=== PATIENT | female | born 1980 | race Caucasian/White ===

== ENCOUNTER 2016-07-10 00:54 | Emergency (ER) | payer BC ==
[2016-07-10 01:34] LABS: URINE APPEARANCE CLEAR; URINE BILIRUBIN NEGATIVE (NEGATIVE); URINE COLOR LTYELLOW; URINE GLUCOSE (UA) NEGATIVE (NEGATIVE); URINE KETONE NEGATIVE (NEGATIVE); URINE LEUK ESTERASE NEGATIVE (NEGATIVE); URINE NITRITE NEGATIVE (NEGATIVE); URINE UROBILINOGEN NEGATIVE E.U./dl (0.2-1.0)
--- NOTE | 2016-07-10 01:40 | PDOC ---
History of Present Illness - General History Source: Patient Exam Limitations: No Limitations - History of Present Illness Initial Comments: 07/10/16 01:55 The patient is a 36 year old female with no significant past medical history who presents to the ED with 3 weeks of dry cough. Patient reports visiting a urgent care for her persistent dry cough where she had a flu swab and rapid strep done that was negative. Patient was treated with flonase and tessalon perles without improvement. She presents to the ER today for further evaluation. The patient denies fever, chills, SOB, chest pain, and palpitations. The patient denies abdominal pain, nausea, vomiting, and diarrhea. Allergies: NKDA Social History: No alcohol, tobacco, or drug use reported. Past Surgical History: None reported <Rena Swan - Last Filed: 07/10/16 01:55> - General History Source: Patient <GeorgeKeith murphy - Last Filed: 07/10/16 02:29> - General Chief Complaint: Cold Symptoms Stated Complaint: COLD SYMPTOMS, VOMITING Time Seen by Provider: 07/10/16 01:23 Past History <Rena Swan - Last Filed: 07/10/16 01:55> - Psycho/Social/Smoking Cessation Hx Anxiety: No Suicidal Ideation: No Smoking History: Never smoked Have you smoked in the past 12 months: No Hx Alcohol Use: No Drug/Substance Use Hx: No Substance Use Type: None <Keith Alberts - Last Filed: 07/10/16 02:29> - Past Medical History Allergies/Adverse Reactions: Allergies Allergy/AdvReac Type Severity Reaction Status Date / Time No Known Allergies Allergy Verified 07/10/16 01:19 Home Medications: Ambulatory Orders Albuterol Sulfate Inhaler - [Ventolin HFA Inhaler -] 2 inh PO Q4H #1 inh Benzonatate [Tessalon Pearls -] 100 mg PO TID 07/10/16 Fluticasone Prop 0.05% Nasal [Flonase -] 1 - 2 spray NS BID 07/10/16 Ondansetron [Zofran *Odt*] 4 mg SL TID #30 od.tablet 07/10/16 Pseudoephedrine HCl [Sudafed] 30 mg PO Q6H #20 tablet 07/10/16 Review of Systems - Review of Systems Able to Perform ROS?: Yes Comments:: 07/10/16 01:55 CONSTITUTIONAL: Absent: fever, no chills, no fatigue EYES: Absent: visual changes ENT: Absent: ear pain, no sore throat CARDIOVASCULAR: Absent: chest pain, no palpitations RESPIRATORY: +cough Absent: no SOB GI: Absent: abdominal pain, no nausea, no vomiting, no constipation, no diarrhea GENITOURINARY: Absent: dysuria, no frequency, no hematuria MUSKULOSKELETAL: Absent: back pain, no arthralgia, no myalgia SKIN: Absent: rash NEURO: Absent: headache <BenyRena - Last Filed: 07/10/16 01:55> *Physical Exam - Vital Signs Last Vital Signs Temp Pulse Resp BP Pulse Ox 98.3 F 65 17 106/68 100 07/10/16 01:20 07/10/16 01:20 07/10/16 01:20 07/10/16 01:20 07/10/16 01:20 - Physical Exam Comments: 07/10/16 01:55 GENERAL: Well-appearing, well-nourished. No apparent distress. HEENT: Normocephalic, atraumatic. PERRL, EOM intact. Moderate nasal congestion. CARDIOVASCULAR: Normal S1, S2. Regular rate and rhythm. PULMONARY: Clear to auscultation bilaterally. ABDOMEN: Soft, non-distended, non-tender. EXTREMITIES: Normal ROM in all four extremities. No gross deformities. SKIN: Warm, dry. No rash NEUROLOGICAL: No focal neurological deficits. <Rena Swan - Last Filed: 07/10/16 01:55> - Vital Signs Last Vital Signs Temp Pulse Resp BP Pulse Ox 98.3 F 65 17 106/68 100 07/10/16 01:20 07/10/16 01:20 07/10/16 01:20 07/10/16 01:20 07/10/16 01:20 <Keith Alberts - Last Filed: 07/10/16 02:29> ED Treatment Course - ADDITIONAL ORDERS Additional order review: Laboratory Results 07/10/16 01:23 Urine Color Ltyellow Urine Appearance Clear Urine pH 5.0 Ur Specific Chase 1.018 Urine Protein 1+ H Urine Glucose (UA) Negative Urine Ketones Negative Urine Blood 3+ H Urine Nitrite Negative Urine Bilirubin Negative Urine Urobilinogen Negative Ur Leukocyte Esterase Negative Urine RBC 58 Urine WBC 3 Ur Epithelial Cells Rare Urine Mucus Rare Urine HCG, Qual Negative <Rena Swan - Last Filed: 07/10/16 01:55> Medical Decision Making - Medical Decision Making 07/10/16 02:28 Dr. Alberts: The scribe's documentation has been prepared under my direction and personally reviewed by me in its entirery. I confirm that the note above accurately reflects all work, treatment, procedures, and medical decision making performed by me. Pt chest xray negative for infiltrate. Pt to follow up with pcp for re- evaluation Rx Zpak and Sudafed. <Keith Alberts - Last Filed: 07/10/16 02:29> *DC/Admit/Observation/Transfer - Attestations Scribe Attestion: 07/10/16 01:55 Documentation prepared by Rena Swan, acting as medical photographer for Keith Alberts MD <Rena Swan - Last Filed: 07/10/16 01:55> - Discharge Dispostion Admit: No <Keith Alberts - Last Filed: 07/10/16 02:29> Diagnosis at time of Disposition: Upper respiratory infection Qualifiers: URI type: unspecified URI Qualified Code(s): J06.9 - Acute upper respiratory infection, unspecified - Discharge Dispostion Disposition: HOME Condition at time of disposition: Stable - Referrals Referrals: STAFF,NOT ON [Primary Care Provider] - Gino Encarnacion MD [Staff Physician] - - Patient Instructions Printed Discharge Instructions: DI for Viral Upper Respiratory Infection -- Adult
[2016-07-10 01:41] LABS: URINE BLOOD 3+ (NEGATIVE); URINE PROTEIN 1+ (NEGATIVE)
[2016-07-10 01:42] LABS: URINE MUCUS RARE; URINE RBC 58 /hpf (0-3); URINE WBC 3 /hpf (3-5)
[2016-07-10 01:50] VITALS: BP 106/68; PULSE 65; TEMP 98.3; BMI 32.2
[2016-07-10] MEDS ORDERED: PSEUDOEPHEDRINE HCL 60 MG TABLET PO STA (02:25)
[2016-07-10] MEDS ORDERED: AZITHROMYCIN 250 MG TABLET (FP) PO STA (02:25)
[2016-07-10] MEDS ORDERED: PSEUDOEPHEDRINE HCL 60 MG TABLET ONE (02:43)
[2016-07-10] MEDS ORDERED: AZITHROMYCIN 250 MG TABLET (FP) ONE (02:43)
== END 2016-07-10 03:15 | disposition home or self-care (01) ==
LOC: JER 00:54
DX: J06.9 Acute upper respiratory infection, unspecified (principal)
CPT/HCPCS: 71020-TC; 81003; 81015; 84703; 99281-25

== ENCOUNTER 2017-05-08 19:24 | Emergency (ER) | payer BC ==
[2017-05-08 19:44] VITALS: BP 130/84; PULSE 74; TEMP 98.6; BMI 25.4
--- NOTE | 2017-05-08 19:46 | PDOC ---
Rapid Medical Evaluation Time Seen by Provider: 05/08/17 19:40 Medical Evaluation: Allergies Allergy/AdvReac Type Severity Reaction Status Date / Time No Known Allergies Allergy Verified 07/10/16 01:19 05/08/17 19:40 I have performed a brief in-person evaluation of this patient. The patient presents with a chief complaint of: fall ~12 pm today, hit R arm and R frontal head, +LOC s/p fall ~20 minutes, denies anticoagulants Pertinent physical exam findings: A&O x 3, at baseline now per I have ordered the following: urine preg, head CT The patient will proceed to the ED for further evaluation. Discharge Disposition - Diagnosis Fall - Referrals - Patient Instructions - Post Discharge Activity
--- NOTE | 2017-05-08 20:16 | PDOC ---
History of Present Illness - General History Source: Patient Exam Limitations: No Limitations - History of Present Illness Initial Comments: 05/08/17 20:19 The patient is a 36 year old female, with no significant past medical history, who presents to the emergency department s/p mechanical fall at approximately 12 :00 today. The patient reports she tripped and fell on the street earlier today. Patient reports landing on her outstretched right arm and hitting her head. She reports associated right hand and right wrist pain. She denies any associated weakness, changes in vision, headache, dizziness, lightheadedness, numbness or tingling. Patient reports she felt fine after the fall, however, since the incident she has become increasingly forgetful and has difficulty remembering what happened this afternoon. Patient states she called her family to inform them about what was happening, and reports she came to the ED out of concern that she is unable to recall events since the incident. Patient denies any chest pain, shortness of breath, diaphoresis, or palpitations. She denies any fever, chills, nausea, or vomiting. Patient is not on any blood thinners. Allergies: NKDA Past Surgical History: None reported Social History: Non smoker. No ETOH or recreational drug use. <Kate Faust - Last Filed: 05/08/17 21:03> - General History Source: Patient <HunterKeith andersne - Last Filed: 05/08/17 21:55> - General Chief Complaint: Injury Stated Complaint: FALL INJURY Time Seen by Provider: 05/08/17 19:40 Past History <Kate Faust - Last Filed: 05/08/17 21:03> - Past Medical History COPD: No - Suicide/Smoking/Psychosocial Hx Smoking History: Never smoked Have you smoked in the past 12 months: No Information on smoking cessation initiated: No Hx Alcohol Use: No Drug/Substance Use Hx: No Substance Use Type: None <Keith Alberts - Last Filed: 05/08/17 21:55> - Past Medical History Allergies/Adverse Reactions: Allergies Allergy/AdvReac Type Severity Reaction Status Date / Time shellfish derived Allergy Severe Difficulty Verified 05/08/17 19:44 Breathing Home Medications: Ambulatory Orders Albuterol Sulfate Inhaler - [Ventolin HFA Inhaler -] 2 inh PO Q4H #1 inh Benzonatate [Tessalon Pearls -] 100 mg PO TID 07/10/16 Fluticasone Prop 0.05% Nasal [Flonase -] 1 - 2 spray NS BID 07/10/16 Ondansetron [Zofran *Odt*] 4 mg SL TID #30 od.tablet 07/10/16 Pseudoephedrine HCl [Sudafed] 30 mg PO Q6H #20 tablet 07/10/16 Review of Systems - Review of Systems Able to Perform ROS?: Yes Comments:: 05/08/17 20:19 CONSTITUTIONAL: Absent: fever, no chills, no fatigue, no weakness EYES: Absent: visual changes ENT: Absent: ear pain, no sore throat CARDIOVASCULAR: Absent: chest pain, no palpitations RESPIRATORY: Absent: cough, no SOB GI: Absent: abdominal pain, no nausea, no vomiting, no constipation, no diarrhea GENITOURINARY: Absent: dysuria, no frequency, no hematuria MUSCULOSKELETAL: Present: right hand and right wrist pain Absent: back pain, no other arthralgia or myalgia SKIN: Absent: rash NEURO: Present: Difficulty recalling events Absent: headache, vertigo, dizziness, lightheadedness <Faust,Giomilsy - Last Filed: 05/08/17 21:03> *Physical Exam - Vital Signs Last Vital Signs Temp Pulse Resp BP Pulse Ox 98.6 F 74 18 130/84 100 05/08/17 19:41 05/08/17 19:41 05/08/17 19:41 05/08/17 19:41 05/08/17 19:41 - Physical Exam Comments: 05/08/17 20:19 GENERAL: Well-appearing, well-nourished. No apparent distress. HEENT: Normocephalic, atraumatic. PERRL, EOM intact. No raccoon or dunn signs. No hemotympanum. CARDIOVASCULAR: Normal S1, S2. Regular rate and rhythm. PULMONARY: Clear to auscultation bilaterally. ABDOMEN: Soft, non-distended, non-tender. EXTREMITIES: Normal ROM in all four extremities. No gross deformities. No deformities of the right wrist or hand. SKIN: Warm, dry. No rash NEUROLOGICAL: No focal neurological deficits. <Faust,Giomilsy - Last Filed: 05/08/17 21:03> - Vital Signs Last Vital Signs Temp Pulse Resp BP Pulse Ox 98.6 F 74 18 130/84 100 05/08/17 19:41 05/08/17 19:41 05/08/17 19:41 05/08/17 19:41 05/08/17 19:41 <Keith Alberts - Last Filed: 05/08/17 21:55> ED Treatment Course - ADDITIONAL ORDERS Additional order review: Laboratory Results 05/08/17 19:56 Urine HCG, Qual Negative - RADIOLOGY Radiograph Interpretation: 05/08/17 21:03 EXAM: Head CT INTERPRETED BY: Dr. Fritz REVIEWED BY: Dr. Alberts. IMPRESSION: Normal CT scan of the head with no evidence of acute intracranial pathology. <Kate Faust - Last Filed: 05/08/17 21:03> - RADIOLOGY Radiology Studies Ordered: Category Date Time Status WRIST W/HAND-RIGHT* [RAD] Stat Radiology 05/08/17 19:59 Ordered <Keith Alberts - Last Filed: 05/08/17 21:55> Medical Decision Making - Medical Decision Making 05/08/17 21:53 Dr. Alberts: The scribe's documentation has been prepared under my direction and personally reviewed by me in its entirery. I confirm that the note above accurately reflects all work, treatment, procedures, and medical decision making performed by me. CAT scan of head pathology. hand x-ray is negative for fx or dislocation. Pt advised to apply ice as needed. Pt has Diclofenac at home which she says she will take <Keith Alberts - Last Filed: 05/08/17 21:55> *DC/Admit/Observation/Transfer - Attestations Scribe Attestion: 05/08/17 20:19 Documentation prepared by Kate Faust, acting as medical affairs leader for Keith Alberts DO. <Kate Faust - Last Filed: 05/08/17 21:03> - Discharge Dispostion Admit: No <Keith Alberts - Last Filed: 05/08/17 21:55> Diagnosis at time of Disposition: Fall Qualifiers: Encounter type: initial encounter Qualified Code(s): W19.XXXA - Unspecified fall, initial encounter Closed head injury Qualifiers: Encounter type: initial encounter Qualified Code(s): S09.90XA - Unspecified injury of head, initial encounter Hand sprain Qualifiers: Encounter type: initial encounter Laterality: right Qualified Code(s): S63.91XA - Sprain of unspecified part of right wrist and hand, initial encounter - Discharge Dispostion Disposition: HOME Condition at time of disposition: Stable - Referrals Referrals: Riri Garcia MD [Primary Care Provider] - - Patient Instructions Printed Discharge Instructions: DI for Closed Head Injury, DI for Hand Injury Additional Instructions: Continue taking the Diclofenac you have at home. apply ice to hand as needed. Return if any problems Print Language: CONGOLESE - Post Discharge Activity
== END 2017-05-08 22:07 | disposition home or self-care (01) ==
LOC: JER 19:24
DX: S09.90XA Unspecified injury of head, initial encounter (principal); S63.91XA Sprain of unspecified part of right wrist and hand, initial encounter; W18.39XA Other fall on same level, initial encounter; Y93.89 Activity, other specified; Y92.410 Unspecified street and highway as the place of occurrence of the external cause
CPT/HCPCS: 70450-TC; 73110-TC-RT; 73130-TC-RT; 84703; 99281-25